=== PATIENT | male | born 1940 | race Caucasian/White ===

== ENCOUNTER 2017-06-14 15:49 | Inpatient (IN) | payer MEDICARE, OTHER ==
[~2017-06-14] VITALS: Ht 177.8 cm; Wt 104.1 kg
--- OUTSIDE RECORDS SUMMARY | ~2017-06-14 | XMS | Clinical Summary ---
Demographics + + + | Address | [address] | | | [place] [address] | + + + | Home Phone | | + + + | Preferred Language | Unknown | + + + | Marital Status | | + + + | Caodaism Affiliation | Unknown | + + + | Race | White | + + + | Ethnic Group | Not or | + + + Author + + + | Author | [facility] | + + + | Organization | [facility] | + + + | Address | Unknown | + + + | Phone | Unavailable | + + + Support + + + + + | Name | Relationship | Address | Phone | + + + + + | TALIB ROBERTO | ECON | [address] | | | | | [place] [address] | | + + + + + Care Team Providers + +------+ + | Care Retail Management Trainee Name | Role | Phone | + +------+ + | Seth Teran MD | PP | | + +------+ + Source Comments LAWRENCE is fully live on both EpicCare Ambulatory and EpicCare InPatient.[facility] Allergies + + + + + + | Active Allergy | Reactions | Severity | Noted | Comments | | | | | Date | | + + + + + + | Atenolol | Unknown | | 09/11/19 | | | | | | 17 | | + + + + + + | Nizatidine | Unknown | | 09/11/19 | | | | | | 17 | | + + + + + + | Azithromycin | Unknown | Low | 09/11/19 | Tolerates somewhat | | | | | 17 | | + + + + + + | Diphenhydramine Hcl | Unknown | | 20 | | | | | | 17 | | + + + + + + | Clarithromycin | Unknown | | 20 | | | | | | 17 | | + + + + + + | Nicardipine Hcl | Unknown | | 09/11/19 | | | | | | 17 | | + + + + + + | Clindamycin | Unknown | | 09/11/19 | | | | | | 17 | | + + + + + + | Carvedilol | Unknown | | 06/15/20 | | | | | | 17 | | + + + + + + | Duloxetine | Unknown | | 06/15/20 | | | | | | 17 | | + + + + + + | Meperidine (Pf) | Unknown | | 06/15/20 | | | | | | 17 | | + + + + + + | Finasteride | Unknown | | 06/15/20 | | | | | | 17 | | + + + + + + | Droperidol | Unknown | High | 06/15/20 | | | | | | 17 | | + + + + + + | Propranolol Hcl | Unknown | | 06/1520 | | | | | | 17 | | + + + + + + | Metoprolol Tartrate | Unknown | | 20 | | | | | | 17 | | + + + + + + | Metronidazole | Unknown | Low | 09/11/19 | Tolerates somewhat | | | | | 17 | | + + + + + + | Penicillin | Unknown | | /1520 | | | | | | 17 | | + + + + + + | Oxycodone-Acetaminop | Unknown | Low | 09/11/19 | Tolerates somewhat | | hen | | | 17 | | + + + + + + | Prednisone | Unknown | High | 09/11/19 | | | | | | 17 | | + + + + + + | Nifedipine | Unknown | | 09/11/19 | | | | | | 17 | | + + + + + + | Sulfa (Sulfonamide | Unknown | | 09/11/19 | | | Antibiotics) | | | 17 | | + + + + + + | Cimetidine | Unknown | | 20 | | | | | | 17 | | + + + + + + | Tamsulosin | Unknown | | /20 | | | | | | 17 | | + + + + + + | Tetracycline | Unknown | | 09/11/19 | | | | | | 17 | | + + + + + + | Tramadol-Acetaminoph | Unknown | | 09/11/19 | | | en | | | 17 | | + + + + + + | Hydrocodone-Acetamin | Unknown | Low | 09/11/19 | Tolerates somewhat | | ophen | | | 17 | | + + + + + + | Ranitidine Hcl | Unknown | | 09/11/19 | | | | | | 17 | | + + + + + + | Simvastatin | Unknown | | 09/11/19 | | | | | | 17 | | + + + + + + Current Medications + + +-------+---------+------+------+-------+ | Prescription | Sig. | Disp. | Refills | Star | End | Statu | | | | | | t | Date | s | | | | | | Date | | | + + +-------+---------+------+------+-------+ | | Take 1 capsule by | | | | | Activ | | aspirin-dipyridamole | mouth two times | | | | | e | | 25-200 mg oral | daily. | | | | | | | capsule, ER | | | | | | | | multiphase 12 hr | | | | | | | + + +-------+---------+------+------+-------+ | allopurinol 100 mg | Take 100 mg by mouth | | | | | Activ | | oral tablet | once daily. | | | | | e | + + +-------+---------+------+------+-------+ | zolpidem 10 mg | Take 10 mg by mouth | | | | | Activ | | oral tablet | once daily at | | | | | e | | | bedtime as needed | | | | | | | | for sleep. | | | | | | + + +-------+---------+------+------+-------+ | amLODIPine 5 mg | Take 5 mg by mouth | | | | | Activ | | oral tablet | once daily. | | | | | e | + + +-------+---------+------+------+-------+ | atorvastatin 80 mg | Take 80 mg by mouth | | | | | Activ | | oral tablet | once daily. | | | | | e | + + +-------+---------+------+------+-------+ | betamethasone | Apply 0.05 each to | | | | | Activ | | dipropionate 0.05 % | affected area two | | | | | e | | topical lotion | times daily. Apply a | | | | | | | | few drops. | | | | | | + + +-------+---------+------+------+-------+ | nitroglycerin 0.4 | Place 0.4 mg under | | | | | Activ | | mg sublingual | tongue every five | | | | | e | | tablet, sublingual | minutes as needed | | | | | | | | for chest pain. | | | | | | | | Place under tongue | | | | | | | | and allow to | | | | | | | | dissolve. | | | | | | | | Administer every 5 | | | | | | | | minutes, max of 3 | | | | | | | | doses in 15 minutes. | | | | | | + + +-------+---------+------+------+-------+ | fluticasone 50 | Instill 2 sprays | | | | | Activ | | mcg/actuation nasal | into each nostril | | | | | e | | spray,suspension | once daily. | | | | | | + + +-------+---------+------+------+-------+ | furosemide 40 mg | Take 40 mg by mouth | | | | | Activ | | oral tablet | once daily. | | | | | e | + + +-------+---------+------+------+-------+ | | Take 1 tablet by | | | | | Activ | | HYDROcodone-acetamin | mouth twice daily as | | | | | e | | ophen 10-325 mg oral | needed. | | | | | | | tablet | | | | | | | + + +-------+---------+------+------+-------+ | isosorbide | Take 30 mg by mouth | | | | | Activ | | mononitrate CR 30 mg | two times daily. | | | | | e | | oral tablet | | | | | | | | extended release 24 | | | | | | | | hr | | | | | | | + + +-------+---------+------+------+-------+ | insulin glargine | Inject under the | | | | | Activ | | 100 unit/mL | skin (SUBC) once | | | | | e | | subcutaneous | daily at bedtime. | | | | | | | solution | | | | | | | + + +-------+---------+------+------+-------+ | INV lidocaine 5% | Apply to affected | | | | | Activ | | topical cream | area once daily as | | | | | e | | | needed. Apply four | | | | | | | | times daily to the | | | | | | | | vulvar vestibule as | | | | | | | | directed by staff. | | | | | | + + +-------+---------+------+------+-------+ | loratadine 10 mg | Take 10 mg by mouth | | | | | Activ | | oral tablet | once daily. | | | | | e | + + +-------+---------+------+------+-------+ | insulin aspart | Inject 22 Units | | | | | Activ | | (NOVOLOG) 100 | under the skin | | | | | e | | unit/mL subcutaneous | (SUBC) two times | | | | | | | solution | daily. | | | | | | + + +-------+---------+------+------+-------+ Active Problems + + + | Problem | Noted Date | + + + | Renal mass | 09/07/2016 | + + + Family History + + +------+ + | Medical History | Relation | Name | Comments | + + +------+ + | Diabetes | Other | | | + + +------+ + | Hypertension | Other | | | + + +------+ + + +------+--------+ + | Relation | Name | Status | Comments | + +------+--------+ + | Other | | | | + +------+--------+ + Social History + +-------+ +--------+------+ | Tobacco Use | Types | Packs/Day | Years | Date | | | | | Used | | + +-------+ +--------+------+ | Never Smoker | | | | | + +-------+ +--------+------+ + + + | Sex Assigned at | Date Recorded | | | | + + + | Not on file | | + + + Last Filed Vital Signs + + + + | Vital Sign | Reading | Time Taken | + + + + | Blood Pressure | 128/52 | 09/07/2016 8:08 AM PDT | + + + + | Pulse | 75 | 09/07/2016 8:08 AM PDT | + + + + | Temperature | - | - | + + + + | Respiratory Rate | - | - | + + + + | Oxygen Saturation | - | - | + + + + | Inhaled Oxygen | - | - | | Concentration | | | + + + + | Weight | 109.8 kg (242 lb) | 09/07/2016 8:08 AM PDT | + + + + | Height | - | - | + + + + | Body Mass Index | - | - | + + + + Plan of Treatment + + + + + | Health Maintenance | Due Date | Last Done | Comments | + + + + + | INFLUENZA VACCINE | | | | | (FLU SHOT) | 7 | | | + + + + + Results Not on filefrom Last 3 Months"
--- OUTSIDE RECORDS SUMMARY | ~2017-06-14 | XMS | Clinical Summary ---
Demographics + + + | Address | [address] | | | [place] [address] | + + + | Home Phone | | + + + | Preferred Language | Unknown | + + + | Marital Status | | + + + | Cheondoism Affiliation | Unknown | + + + [...] ROBERTO | ECON | [address] [facility] | | | | | [place] [address] | | + + + + + Care Team Providers + +------+ + | Care Dining Room Server Name | Role | Phone | + +------+ + | Seth Teran MD | PP | | + +------+ + Source Comments LAWRENCE is fully live on both EpicCare Ambulatory and EpicCare InPatient.[facility] Allergies + + + + + + [...]
--- OUTSIDE RECORDS SUMMARY | ~2017-06-14 | XMS | Clinical Summary ---
Demographics + + + | Address | [address] | | | [place] [address] | + + + | Home Phone | | + + + | Preferred Language | Unknown | + + + | Marital Status | | + + + | Yazidism Affiliation | Unknown | + + + [...] ECON | [address] | | | | | [place] [address] | | + + + + + Care Team Providers + +------+ + | Care Printing Machinist Name | Role | Phone | + +------+ + | Seth Teran MD | PP | | + +------+ + Source Comments LAWRENCE is fully live on both EpicCare Ambulatory and EpicCare InPatient.[facility] Allergies + + + + + + [...]
[~2017-06-14 15:49] MED LIST: AGGRENOX 25 MG-21 EA PO; AMLODIPINE BESYL5 MG PO; ASPIRIN EC81 MG PO; CARVEDILOL25 MG PO; CLEOCIN HCL300 MG PO; COLACE100 MG PO; DOCUSATE SODIU100 MG PO; FLAGYL500 MG PO; FLUTICASONE PRO16 GM NS; ISOSORBIDE MONO30 MG PO; LANTUS100 UNITS/ SUB-Q; LASIX20 MG PO; LIDOCAINE1 EACH TOP; LIPITOR80 MG GT; LIPITOR80 MG PO; LISINOPRIL40 MG PO; LORATADINE10 MG PO; MEDI-PATCH WIT1 EACH TOP; METOLAZONE2.5 MG PO; NAPROXEN500 MG PO; NITRO-TIME2.5 MG PO; NITROGLYCERIN0.4 MG SL; NORCO 5-325 TA1 EACH PO; NORVASC10 MG PO; NOVOLOG FL100 UNIT/1 SUB-Q; OCUVITE LUTEIN1 EAC1 PO; PERCOCET 5-3251 EACH PO; POTASSIUM CHLO20 ME1 PO; PROTONIX40 MG PO; TOPROL XL25 MG PO; TRIAMCINOLONE A15 GM TOP; TYLENOL325 MG PO
--- NOTE | 2017-06-14 23:02 | NUR ---
STANDING AT BEDSIDE. HAD VOIDED. PT STATES THAT HE FEELS LIKE SCROTUM IS SWELLING. INFORMED PT THAT THIS HAPPENS WHEN A PERSON HAS TO BE UPRIGHT . PT THEN STANDING AGAIN AND SAYS THAT HE FEELS LIKE HE CAN'T BREATH WELL EVEN SITTING. ASKED IF HE WANTED TO WEAR CPAP. RT CALLED. PT CONT TO SIT AT EDGE OF BED.
--- NOTE | 2017-06-14 23:15 | NUR ---
DR VARELA CALLED AND GIVEN UPDATE. WILL HAVE PT TRY TO SLEEP IN RECLINER. CHERYL MARTINEZ GIVEN UPDATE.
--- NOTE | 2017-06-14 23:53 | NUR ---
PT ARRIVED TO ROOM 129 AT 2034. STOOD AT BEDSIDE FOR STANDING SCALE. SLIGHTLY UNSTEADY ON FEET. PT WITH DISCOLORATION IN SHINS, BLISTERING ON R CHENG. ALSO HAS NICKEL SIZED BLISTER MID- R CHENG. PT REPORTS SWELLING NEW THIS WEEK. DENIES HAVING LE EDEMA PRIOR. SWELLING 4+, DOPPLER USED TO FIND PULSES IN FEET. ADDITIONALLY ABD FEELS TIGHT, PT REPORTS FEELING MORE BLOATING AND GAS RECENTLY. PT UNABLE TO LAY DOWN AFTER DINNER. SITTING AND BELCHING AT BEDSIDE OCCATIONALLY. AT APPROXIMATELY [address] MORE SOB. DR VARELA NOTIFIED. WORK OF BREATHING NO SIGNIFICANTLY INCREASED. RR 20'S. SPO2 95-97% ON 2L NC. TRIED PT HOME CPAP, PT UNABLE TO TOLERATE, TOOK OFF. PLACED CARRASQUILLO CATHETER AT 0 PT FATIGUED AND SOB WITH EXERTION. PT UNABLE TO LIE SUPINE FOR PROCEDURE. PLACED 16FR IN CHAIR, USED CHLOROHEXADINE FOR PREP. PT FEELING MORE COMFORTABLE IN CHAIR. UNABLE TO ELEVATE LE, HOWEVER.
--- NOTE | 2017-06-15 02:29 | NUR ---
PT GIVEN 10MG AMBIEN TO HELP SLEEP AND 500MG TYLENOL AT 0130. PT UP AND DOWN IN CHAIR TO STRETCH BACK. REPORTS FEELING LESS SOB IN THE CHAIR. CURRENTLY SLEEPING. EARLIER HAD ATTEMPTED TO ELEVATE PT LEGS IN CHAIR WITH PILLOWS. PT TOLERATED FOR 30MIN.
--- NOTE | 2017-06-15 03:13 | NUR ---
PT ASLEEP IN CHAIR. LE ELEVATED.
--- NOTE | 2017-06-15 04:34 | NUR ---
PT REQUESTED TO STAND UP, UNSTEADY ON FEET. REMAINS DROWSY. BACK TO CHAIR, FEET ELEVATED. PT FEELS SCROTUM IS LESS SWOLLEN. LESS SOB.
--- NOTE | 2017-06-15 05:04 | NUR ---
REPOSITIONED PT IN BED WITH PILLOWS. PLACED BIPAP BACK ON PT. IPAP10, EPAP5, RATE 8, 02- 25%. REMINDED PT THAT IS NPO. CALL IN REACH BED ALARM ON. REMAINS FORGETFUL AND DROWSY.
--- NOTE | 2017-06-15 07:30 | NUR ---
BEDSIDE REPORT RECIEVED.
--- NOTE | 2017-06-15 07:40 | NUR ---
SITTING UP IN CHAIR. FAMILY MEMBERS ARE AT BEDSIDE. PATIENT AND FAMILY ARE UNDERSTANDING OF PLAN OF CARE. LASIX GTT 5 MG/HR. CARRASQUILLO CATH IS PATENT WITH CLEAR YELLOW URINE NOTED.
--- NOTE | 2017-06-15 08:30 | NUR ---
SITTING AT BEDSIDE TO EAT BREAKFAST. ROUTINE MEDICATIONS GIVEN. IS AWARE OF FLUID RESTRICTION. PATIENT DENIES SHORTNESS OF BREATH.
--- NOTE | 2017-06-15 10:43 | NUR ---
IS SLEEPING IN BED WITH LEGS ELEVATED AT HIS TIME. NO DISTRESS NOTED,
--- NOTE | 2017-06-15 13:15 | NUR ---
AMBULATED TO BR. IS STABLE ON FEET.
--- NOTE | 2017-06-15 13:22 | EKG ---
[facility] [address] [place] [address] Signed Sinus rhythm with frequent premature ventricular complexes Right bundle branch block Lateral infarct , age undetermined Inferior infarct , age undetermined Abnormal ECG No previous ECGs available Confirmed by BLAKE VARELA MD ([id number]) on 06/15/2017 1:21:52 PM Electronically Signed By: BLAKE VARELA MD 06/15/17 1322 PATIENT NAME: JESUSPATHALEY LY Electrocardiogram DATE OF : 42 PHYSICIAN: BLAKE VARELA MD REPORT #: [id number] REPORT IS CONFIDENTIAL AND NOT TO BE RELEASED WITHOUT AUTHORIZATION
--- NOTE | 2017-06-15 15:53 | NUR ---
Heart Failure Education Diagnosis acute on chronic HFrEF Date of echocardiogram 2014 Jose Inhibitor or ARB:Yes Beta Devante ordered:Yes Admit Wt.: 242 lb Admit BNP: 903 Social support system: Lives with spouse, Grandson Norman present at bedside, strong community ties Weight monitoring: Has home scales and reports weighing QD Diet: reports that she doesn't cook with salt. Will follow up with more in depth diet discussion. Physical activity: Limited. Has intolerance to too warm or cold. Has park that has nice level surface near his home. Medication routine: Spouse fills weekly medication box every Wednesday. Patient appears tired, will return prior to DC for further discussions about self management barriers and goals. Teaching materials given today: Traci Living with Heart Failure book, Low Sodium Shopping list, Daily weight and symptom monitoring log.
--- NOTE | 2017-06-15 17:00 | NUR ---
ASSESSMENT DONE. NO CHANGES. FAMILY REMAIN IN ROOM. LEGS ELEVATED ON PILLOWS.
[2017-06-15] MEDS ORDERED: TORSEMIDE20 MG PO (17:45)
[2017-06-15] MEDS ORDERED: ESZOPICLONE3 MG PO (17:47)
[2017-06-15] MEDS ORDERED: ALLOPURINOL100 MG PO (17:49)
[2017-06-15] MEDS ORDERED: AMLODIPINE BESYL5 MG PO (17:50)
[2017-06-15] MEDS ORDERED: VITAMIN D-32000 UNI1 PO (17:55)
--- NOTE | 2017-06-15 18:45 | NUR ---
ATTEMPTED TWICE TO START IV SITE, UNSUCCESSFUL. PICC LINE CONSULT ORDERED. PATIENT IS WITHOUT C/O.
--- NOTE | 2017-06-15 19:30 | NUR ---
PT SHIFT REPORT RECEIVED FROM DAY SHIFT RN. ALL QUESTIONS ANSWERED. PT AND IN ROOM. PT IS SITTING IN CHAIR AT THIS TIME. WILL CONTINUE TO CLOSELY MONITOR.
--- NOTE | 2017-06-15 19:31 | NUR ---
REPORT TO NEXT SHIFT. PATIENT IS W/O C/O. IN ROOM.
--- NOTE | 2017-06-15 20:30 | NUR ---
PT ASSESSMENT COMPLETED. PT BREATH SOUNDS CLEAR. BOWEL TONES ARE DISTANT AND HYPOACTIVE. PT REPORTS BM X2 TODAY SO REFUSED SENNA MEDICATION THIS PM. PT ABDOMEN IS DISTENDED PER PT. BLE ARE VERY SWOLLEN WITH 3+ PITTING EDEMA NOTED. PT STES HE CAN MOVE HIS TOES TODYA NAD LAST NIGHT WAS NOT ABLE TO MOVE THEM D/T THE SWELLING. PT HAS CARRASQUILLO IN PLACE WITH CLEAR YELLOW URINE PRESENT. PT WILL CALL WHEN HE IS READY FOR BED AND WILL GIVE SLEEPING AID PER REQUEST AT THAT TIME AND ASSIST WITH GETTING TO BED. WILL PLACE CPAP ON AT THAT TIME. PT STATES "I FEEL MUCH BETTER TONIGHT THAN THE PREVIOUS NIGHT".PT AT THE BEDSIDE. PT IS VERY TALKATIVE AND TELLING STORIES ABOUT HIS PREVIOUS CAREER AND ADVENTURES IN LIFE. WILL CONTINUE TO CLOSELY MONITOR.
--- NOTE | 2017-06-15 22:20 | NUR ---
PT CALLED TO GET IN BED. PT TOELRATED WELL. PT IS STAND-BY WITH A WALKER. LEGS ELEVATED ON PILLOWS TO HELP WITH EDEMA. GAVE PT TYLENOL FOR GEN. DISCOMFORT AND PRN SLEEP AID PER REQUEST. PT DENIES WEARING HIS CPAP AT THIS TIME. PT WOULD PREFER TO WEAR OXYGEN TO SLEEP INSTEAD LIKE HE DID THE PREVIOUS NIGHT. PLACED ON 3L NC. GAVE WARM BLANKET. CARRASQUILLO EMPTIED. EDUCATED EVENT SPECIALIST LIGHT. WILL CONTINUE TO CLOSELY MONITOR.
--- NOTE | 2017-06-15 23:15 | NUR ---
CALLED MD TO UPDATE THAT PT URINE IS LESS THAN 100ML/HR. PER DAYSHIFT REPORT TO NOTIFY MD IF LESS THAN 100ML/HR. MD STATED LETS CONTINUE TO MONITOR IT OVER NIGHT AND TO NOTIFY MD IF PT BECOMES ANURIC. NO OTHER ORDERS AT THIS TIME.
--- NOTE | 2017-06-15 23:40 | NUR ---
OTHER STAFF IN ROOM WITH PT. ENTERED ROOM. PT WOKE DROWSY AND FORGETFUL. CHECKED PT BLOOD SUGAR 139. PER PT PT WAKES LIKE THIS ABOUT EVERY OTHER NIGHT SOMETIMES MULITPLE TIMES A NIGHT AND SHE REDIRECTS HIM TO BACK TO BED. SET BED ALARM FOR PT SAFETY. PT CPAP ON AT THIS TIME. PT NOW SLEEPING IN BED. PT OVER TO TALK WITH STAFF. PT STATES THAT AT HOME HER WILL TALK TO THEIR SON IN THE MIDDLE OF THE NIGHT. SHE STATES HER HAS ONCE BEFORE AND WAS REVIVED AND EVER SINCE THAT TIME HE HAS HAD VISIONS AND TALKED WITH THEIR SON EVER SINCE HE . PER PT THE PT HAS KIDNEY CANCER AND 5 DOCTORS HAVE TOLD HER THEIR IS NOTHING THEY CAN DO THIS TIME AROUND. PT IS VERY OPEN TO DISCUSSION REGURDING HER HUSBANDS MEDICAL ISSUES. PT WIFES GRANDSON IS VERY HELPFUL AND LIVES NEXT DOOR TO THEM. ENCOURAGED PT AND HIS TO GET SOME REST. WILL CONTINUE TO CLOSELY MONITOR.
--- NOTE | 2017-06-16 02:00 | NUR ---
PT RESTING IN BED AT THIS TIME WITH CPAP IN PLACE. PT NEIDA CONTINUES TO DRAIN YELLOW URINE. PT SLEEPING ON SOFA AT THIS TIME. PT BED ALARM ON FOR HIS SAFETY. CALL LIGHT IN REACH. WILL CONTINUE TO CLOSELY MONITOR.
--- NOTE | 2017-06-16 04:00 | NUR ---
PT AWAKE AND TELEMETRY IS OFF. ENTERED ROOM. PT NEEDS TO GET UP AND HAVE A BM. PT AMBULATED INTO THE BATHROOM WITH WALKER. CARRASQUILLO CATHETER EMPTIED COMPLETELY. ASSESSMENT COMPLETED. PT WANTS TO GO BACK TO BED AT THIS TIME. ASSISTED PT BACK IN BED. PLACED CPAP MACHINE BACK ON PT FOR REST. CALL LIGHT IN REACH. PT DENIES ANY OTHER NEEDS AT THIS TIME. WILL CONTINUE TO MONITOR. BED ALARM ON FOR A SAFETY. PT IS ALERT AND ORIENTED AT THIS TIME.
--- NOTE | 2017-06-16 05:30 | NUR ---
PT WOKE AND READY TO GET UP TO THE CHAIR. ASSISTED PT UP TO CHAIR. PT AMBULATED WELL WITH WALKER TO THE CHAIR. PT DENIES ELEVATING LEGS AT THIS TIME. PT REMAINS ALERT AND ORIENTED AND CALLING APPROPRIATELY. PT IS UP AT HIS SIDE. SHE IS VERY HELFUL IN HIS CARE AND WISHES TO HELP WHERE SHE CAN. PT COMPLETED AQUAPELLA AND INCENTIVE SPIROMETER THIS MORNING APPROPRIATELY. WILL CONTINUE TO ENCOURAGE USE THROUGHOUT THE DAY. BREAKFAST ORDERED. PT HAS CALL LIGHT IN HAND. LASIX GTT REMAINS AT 5ML/HR PER ORDER WITH NO ISSUES. WILL CONTINUE TO CLOSELY MONITOR.
--- NOTE | 2017-06-16 08:53 | NUR ---
PT ATE APPROX 95% OF LOW SODIUM BREAKFAST. RETURNED TO BED WITH ONE PERSON ASSIST. ASSESSMENT COMPLETED, PT STATES HIS RIGHT SHOULDER AND LOW BACK PAIN IS "3/10". LIDOCANE PATCHES IN PLACE. IN ROOM.
--- NOTE | 2017-06-16 09:30 | NUR ---
Heart Failure RN visit #2- Patient and shared past cardiac rehab experiences. Are engaged in self care routines. Reinforced importance of QD weight and when to report symptoms-and to whom. Given HF Zones Magnet to patient's spouse. Reports dry weight is 234lb. Today's documented wt 236 lb. Patient knows to avoid NSAIDs. Denies problems remembering meds. Some meds taken later than usual recently due to fatigue and getting out of bed later than usual. Given 7 day, 4times a day, pill box to utilize. Importance of follow up with PCP or chicken boner within 7 days of DC disussed. Has June 30 rig builder helper appointment scheduled. Agrees to be put on waitlist for cardiac rehab program as "a refresher". Viewed Jameson Velasquez What is Heart Failure video.
--- NOTE | 2017-06-16 10:29 | NUR ---
PT ASSISTED WITH SPONGE BATH. ORAL CARE COMPLETED. PT STOOD AT BEDSIDE WITH WALKER, FAMILY IN ROOM.
--- NOTE | 2017-06-16 16:48 | NUR ---
PT RESTED THIS AFTERNOON WITH HOB ELEVATED. DR. VARELA IN TO ASSESS PT. PT STATES FEELING BETTER. WILL CONTINUE ON LASIX GTT AT 5MLS/HR. CARRASQUILLO DRAINING CLEAR YELLOW URINE. I/O'S COMPLETED AT 1400. 1600 ASSESSMENT COMPLETED, PT STATES SHOULDER AND LOW BACK PAIN "2/10". LIDOCAINE PATCHES IN PLACE.
--- NOTE | 2017-06-16 18:06 | NUR ---
PT ATE 100% OF DINNER, PT UP TO EMBER CHAIR WITH MINIMAL ASSIST RESTING IN A RECLINED POSITION WITH LEGS ELEVATED.
--- NOTE | 2017-06-16 20:00 | NUR ---
RECEIVED REPORT AT 1900, FOUND PT UP IN CHAIR WITH AT BEDSIDE WATCHING TV. PT DENIED ANY NEEDS AT THAT TIME. LLL HAD FINE CRACKLES, ALL OTHER LOBES ARE CLEAR. ABD SOUNDS ARE PRESENT. SENNA WAS HELD PER PT DUE TO VERY LOOSE STOOL. BILATERAL LEG EDEMA IS +3. LOWER LEGS ARE RED BUT LOOK BETTER STATED BY PT. PT IS AAO X4. LASIX DRIP IS GOING AT 5ML/HR. NO NEW CONCERNS AT THIS TIME.
--- NOTE | 2017-06-16 22:00 | NUR ---
PT IS STILL SITTING IN CHAIR WATCHING TV. PT AT THIS TIME DOES NOT WANT HIS LEGS ELEVATED. NO NEW CONCERNS AT THIS TIME.
--- NOTE | 2017-06-16 23:00 | NUR ---
PT IS IN BED NOW. AMBIEN 10MG GIVEN, BED ALARM IS ON.
--- NOTE | 2017-06-17 00:05 | NUR ---
PT IS SLEEPING AT THIS TIME. SINCE HIS URINE OUTPUT HAS DECREASED TO 75ML/HR FOR THE PAST TWO HOURS, I WILL SWITCH IV SITES AND SEE IF THIS WILL HELP TO GET THE LASIX INTO THE BLOODSTREAM BETTER.
--- NOTE | 2017-06-17 02:00 | NUR ---
PT WAS WOKEN UP FOR THE ASSESSMENT. PT WAS DROWSY DUE TO THE AMBIEN I SUPOSE. ALL LOBES ARE CLEAR, URINE OUTPUT HAS INCREASED TO 100ML/HR FOR THE LAST TWO HOURS. BILATERAL LEG EDEMA IS UNCHANGED. V/S ARE WDL. NO NEW CONCERNS AT THIS TIME.
--- NOTE | 2017-06-17 02:35 | NUR ---
PT WOKE UP WITH A RIGHT LOWER LEG CRAMP. STRETCHING OF THE RIGHT LOWER EXTREMITY WAS DONE AND A WARM BLANKED WAS APPLIED. PT IS BACK TO SLEEP.
--- NOTE | 2017-06-17 04:02 | NUR ---
PT IS SLEEPING AT THIS TIME. NO NEW CONCERNS SO FAR.
--- NOTE | 2017-06-17 04:30 | NUR ---
PT IS AWAKE AT THIS TIME AND SITTING UP AT SIDE OF BED. STANDING WEIGHT IS 234.1LB. V/S ARE WDL, ALL LOBES ARE CLEAR AT THIS TIME. BILATERAL LOWER LEGE EDEMA HAS NOT CHANGED SINCE START OF SHIFT. PT IS ON RA AT THIS TIME. WILL CONTINUE TO MONITOR OUTPUT, V/S AND LUNG LOBES FOR CHANGES.
--- NOTE | 2017-06-17 06:34 | NUR ---
PT OVERALL HAD AN UNEVENTFUL NIGHT. V/S WERE WDL OVERALL. URINE OUTPUT HAS >100ML/HR ALL SHIFT WITH THE EXCEPTION OF ONE HOUR (SEE I&O). AT START OF SHIFT LLL HAD FINE CRACKLES PRESENT BUT ALL OTHER LOBES WERE CLEAR. PT HAD C-PAP ON ALL NIGHT WHILE SLEEPING. ALL LOBES WERE CLEAR WITH LAST ASSESSMENT THIS MORNING. LASIX DRIP IS RUNNING AT 5ML/HR. BG AT 2100 WAS 173, PT RECEIVED 1 UNIT OF NOVOLOG INSULIN. STANDING WEIGHT THIS MORNING WAS 234.1 LB. BILATERAL LEG EDEMA IS +3. HOWEVER, PT AND DAY STAFF NOTED THAT BOTH LEGS ARE LOOKING BETTER OVERALL. MORNING LABS HAVE NOT RESULTED OF NOW. NO NEW COCNERNS AT THIS TIME.
--- NOTE | 2017-06-17 07:56 | NUR ---
PT AWAKE AND ALERT SITTING UP IN BED. PT CALM, DENIES PAIN, NAUSEA, AND SOB AT THIS TIME. VITALS WNL. PT BLOOD GLUCOSE WNL, NO INSULIN GIVEN. PT GIVEN BREAKFAST TRAY, GIVEN IT PROGRAMMER ANALYST TRAY.
--- NOTE | 2017-06-17 08:45 | NUR ---
PT IV SITES INTACT, NO REDNESS OR SWELLING NOTED, PT DENIES PAIN AT EITHER SITE, FLUSH AND FLUIDS INFUSE EASILY. PT AWAKE AND ALERT X4, COOPERATIVE AND POLITE. PT ABLE TO ABMULATED TO SINK WITH WALKER, BRUSH TEETH, WASH FACE. THEN AMBULATED TO CHAIR. VITALS WNL AT THIS TIME, PT ON ROOM AIR. PT C/O BASELINE CHRONIC PAIN IN SHOULDER AND LOW BACK, RATES IT AT 2/10, STATES THIS IS TOLLERABLE. PT DENIES NAUSEA, ABLE TO EAT 100% OF BREAKFAST, SWALLOWS PILLS EASILY. PT COOPERATIVE WITH FLUID RESTRICTION. AND GRANDSON AT THE BEDSIDE.
[2017-06-17] MEDS ORDERED: CELEXA10 MG PO (08:50)
[2017-06-17] MEDS ORDERED: FLONASE ALLERG9.9 ML NAS (08:52)
[2017-06-17] MEDS ORDERED: HYDROCHLOROTHIA25 MG PO (08:54)
[2017-06-17] MEDS ORDERED: NOVOLOG FL100 UNIT/1 SUB-Q (08:59)
--- NOTE | 2017-06-17 09:00 | NUR ---
LINENS ON BED CHANGED.
[2017-06-17] MEDS ORDERED: LOSARTAN POTAS100 MG PO (09:04)
--- NOTE | 2017-06-17 09:43 | NUR ---
Certified Heart Failure RN Note Mr Roberto and family do not have any concerns for this service at this time. Mrs. Roberto states the cardiology appointment for tomorrow has been rescheduled in June. Cardiology office did place patient on wait list to be seen sooner. Screenings completed today: PHQ-9 score 3. Mini-Cog score 4 (a cut point of <3 has been validated for dementia screening).
--- NOTE | 2017-06-17 10:35 | NUR ---
PT AMBULATED DOWN THE WOODY TO THE SHOWER WITH STANDBY ASSIST AND WALKER, PT SHAUNA WELL. PT SAT IN SHOWER CHAIR, RN ASSISTED WITH PT SHOWER, PT ABLE TO DO SOME CARES FOR HIMSELF. CLEAN GOWN AND SOCKS IN PLACE. PT AMBULATED BACK TO HIS ROOM WITH STANDBY ASSIST AND WALKER. PT SHAUNA WELL, DENIES PAIN, NAUSEA, AND SOB AT THIS TIME.
[2017-06-17] MEDS ORDERED: LASIX40 MG PO (10:42)
[2017-06-17] MEDS ORDERED: AMBIEN5 MG PO (10:42)
[2017-06-17] MEDS ORDERED: FUROSEMIDE40 MG PO (10:43)
--- NOTE | 2017-06-17 10:46 | NUR ---
MED REC COMPLETE
--- NOTE | 2017-06-17 11:10 | NUR ---
LIDOCANE PATCHES APPLIED TO RIGHT SHOULDER AND LOW BACK NOW THAT PT IS BACK IN HIS ROOM FROM SHOWER. PT DENEIS NAUSEA, SOB, AND PAIN AT THIS TIME. PT SITTING UP IN CHAIR, CALL LIGHT WITHIN REACH. LUNCH ORDERED FOR PT.
--- NOTE | 2017-06-17 12:12 | NUR ---
ECHO COMPLETED, ASSISTED PT UP TO CHAIR TO EAT LUNCH. PT ALERT AND ORIENTED X4, COOPERATIVE.
--- NOTE | 2017-06-17 13:15 | NUR ---
PASTORAL CARE IN PT ROOM VISITING WITH PT AND SPOUSE.
--- NOTE | 2017-06-17 14:23 | NUR ---
PT SITTING ON SIDE OF BED-ALERT, ORIENTED AND SUPPORTED BY HIS TREY. PT MENTIONED HOW HE IS FEELING BETTER, BUT ADMITTED THAT HIS TIME IS LIMITED. ONLY ONE KIDNEY-WORKING AT 14%, HEART NOT MUCH BETTER. PT SHARED HOW THEY JUST LOST THEIR ONLY SON LAST YEAR WITH SAME ISSUES. VERY OPEN HONEST CONVERSATION. PT REQUESTED PRAYER, WILL FOLLOW NEEDED.
--- NOTE | 2017-06-17 14:26 | NUR ---
PT MOVED BACK TO CHAIR WITH FEET ELEVATED FROM SITTING ON THE BED WITH FEET DOWN. OCCUPATIONAL THERAPY IN ROOM WORKING WITH PT AT THIS TIME.
--- NOTE | 2017-06-17 17:22 | NUR ---
PT SITTING UP IN CHAIR WITH AT BEDSIDE. PT DENIES NAUSEA, SOB, AND STATES PAIN IS TOLLERABLE. PT REPOSTIONED IN CHAIR AND GIVEN HOT BLANKETS FOR COMFORT. DINNER ORDER TAKEN. PT IV SITES INTACT, NO REDNESS OF SWELLING NOTED, FLUIDS INFUSING EASILY.
--- NOTE | 2017-06-17 20:17 | NUR ---
REPORT REC'D FROM DAY SHIFT RN. PATIENT RESTING IN ROOM UPON INITIAL ASSESSMENT AND FOUND TO BE STANDING IN FRONT OF HIS CHAIR, WATCHING TV, WITH HIS AT BEDSIDE. PT APPEARS IN NO ACUTE DISTRESS UPON INITIAL ASSESSMENT. PT IS ALERT, ORIENTED, AND VERY PLEASANT. PT SITS IN CHAIR FOR ASSESSMENT. LUNGS ARE CLEAR TO AUSCULTATION AND PT DENIES SHORTNESS OF BREATH AT THIS TIME. PT IS ON ROOM AIR. PT STATES THAT EARLIER TODAY HE HAD PAIN BETWEEN SHOULDER BLADES THAT SCARED HIM, BUT PAIN WAS RELIEVED WITH PO TYLENOL. PT REMAINS ON LASIX GTT AT 5 MG/HR INTO LEFT AC IV SITE. LOWER LEGS REMAIN EDEMATOUS, WITH 3+ EDEMA PRESENT. SOME SWELLING ALSO NOTED IN UPPER LEGS. PT STATES HE WALKED APPROX 250 FEET TODAY WITH THE PHYS. THERAPIST. OVERALL, PT STATES HE IS FEELING BETTER. MEDS TO BE GIVEN SOON. CALL LIGHT WITHIN REACH.
--- NOTE | 2017-06-17 21:38 | NUR ---
DR. WAKEFIELD NOTIFIED OF 8 BEAT RUN OF [facility] AROUND 2029. RNs IN ROOM WITH PATIEN DURING THIS AND PT WAS ASYMPTOMATIC. NO FURTHER ORDERS REC'D AT THIS TIME.
--- NOTE | 2017-06-17 23:44 | NUR ---
PATIENT HELPED BACK TO BED AT THIS TIME. PT HAS BEEN STRUGGLING TO FALL ASLEEP AND HAS BEEN STANDING AT BEDSIDE TO HELP ALLEVIATE HIS BACK PAIN. PT NOW BACK IN BED WITH CPAP ON WITH 2 L 02. PT REMAINS IN A SINUS RHYTHM WITH A BBB AND FREQ MULTIFOCAL PVCs. CARRASQUILLO REMAINS INTACT DRAINING CLEAR YELLOW URINE. CALL LIGHT WITHIN REACH. PT'S REMAINS IN ROOM ON COUCH SLEEPING AND IS ATTENTIVE TO PATIENT.
--- NOTE | 2017-06-18 03:00 | NUR ---
PATIENT UP STANDING AT SIDE OF BED DUE TO HIS BACK HURTING. PT STATES HE HAS BEEN HAVING TROUBLE SLEEPING THROUGH THE NIGHT. CARRASQUILLO DRAINING CLEAR YELLOW URINE. VITALS BEING TAKEN Q1HR AND STABLE. LASIX GTT REMAINS AT 5 MG/HR. CONTINUE TO MONITOR.
--- NOTE | 2017-06-18 06:19 | NUR ---
PATIENT AWAKE AT THIS TIME AND SITTING UP AT EDGE OF BED. PT REQUEST DECAF COFFEE AND A NEWSPAPER. CARRASQUILLO DRAINED FOR 950 ML OF CLEAR YELLOW URINE. LASIX GTT AT 5 MG/HR. PT STATES HE HAD A POOR NIGHT SLEEPING. PT WORE CPAP WITH 2 L BLED IN DURING SLEEP. CONTINUE TO MONITOR. PT'S WEIGHT THIS AM 231.6 LB.
--- NOTE | 2017-06-18 06:28 | NUR ---
PATIENT HAD A POOR NIGHT OF SLEEP OVERALL. LASIX GTT REMAINS INFUSING AT 5 MG/HR. PT'S WEIGHT THIS AM 231.6 LB. PT STRUGGLED WITH PAIN IN HIS LOW BACK THROUGH THE NIGHT. PT HAD 8 BEAT RUN OF [facility] AROUND 2029 - MD NOTIFIED. NEIDA OUTPUT 950 AT 0600. LIDOCAINE ORDER CHANGED TO HS PT WEARS THEM AT NIGHT AT HOME. TREY IN ROOM AND ATTENTIVE TO PATIENT. SR WITH FREQ PVCs AND BBB, HR 60-80s.
--- NOTE | 2017-06-18 08:11 | NUR ---
PT AWAKE AND ALERT X4. PT C/O / RT SHOULDER PAIN, 500 MG PO TYLENOL GIVEN AT THIS TIME. PT SITTING UP IN CHIAR, BREAKFAST ORDERED FOR PT. PT DENIES NAUSEA AND SOB. IV SITES INTACT, NO REDNESS OR SWELLING NOTE, PT DENIES PAIN AT EITHER IV SITE. DISCUSSED PLAN OF THE DAY WITH PT, PLAN FOR SHOWER AND SHAVE.
--- NOTE | 2017-06-18 09:12 | NUR ---
PT FINISHED WITH BREAKFAST AND BACK IN BED RESTING AT THIS TIME.
--- NOTE | 2017-06-18 10:35 | NUR ---
PT AMBULATED 2 LAPS AROUND UNIT WITH PHYSICAL THERAPY.
--- NOTE | 2017-06-18 12:15 | NUR ---
ORDERED LUNCH FOR PT AND SPOUSE. PT SITTING UP IN CHAIR, DENIES PAIN, NAUSEA, AND SOB AT THIS TIME. LEGS ELEVATED.
--- NOTE | 2017-06-18 13:23 | NUR ---
PT STILL STRUGGLING WITH FLUID BULLD UP. SITTING IN CHAIR WITH LEGS UP. TREY AND G.SON CAMILLA PRESENT. GOOD VISIT, PT MENTIONED HE DID NOT SLEEP WELL. PRAYED WITH ALL, WILL CONTINUE TO FOLLOW
--- NOTE | 2017-06-18 13:30 | NUR ---
PT AMBULATED TO SHOWER IN ROOM 118. PT BRUSHED OWN TEETH, SAT ON TOILET AND HAD BM. THEN INTO SHOWER CHAIR FOR FULL SHOWER WITH ASSIST FROM RN. SHAMPOOED HAIR, SKIN CARE, MARK CARE. PT INTO CLEAN GOWN AND SOCKS AFTER SHOWER. PT AMBULATED BACK TO ROOM. PT THEN IN BED WITH FEET ELEVATED. IV SITES INTACT, NO REDNESS OR SWELLING NOTED, PT DENIES PAIN AT EITHER SITE, BOTH FLUSH EASILY. AND FRIENDS AT BEDSIDE.
--- NOTE | 2017-06-18 17:35 | NUR ---
PT C/O SUDDENLY NOT FEELING WELL. REPORTS NAUSEA AND FEELING LIKE IF HE LAYS DOWN HE IS BEING CHOKED. UNTIED PT GOWN STRINGS ON BACK OF NECK, PLACED PT ON 2L O2 VIA NC. GAVE 4 MG IV ZOFRAN AND SIMETHICONE PO GIVEN. PT ASSISTED TO LAY DOWN IN BED. VITALS WNL AT THIS TIME, HEART RATE REMAINS THE SAME IT HAS BEEN ALL DAY.
--- NOTE | 2017-06-18 18:00 | NUR ---
CALLED TO UPDATE ON PT STATUS: FEELINGS OF NAUSEA, GAS, IN GENERAL NOT FEELING WELL. REPORTED TO DOCTOR THAT 4 MG IV ZOFRAN, AND PO SIMETHICONE GIVEN, AND PLACED PT ON 2L O2. NO NEW ORDERS GIVEN EXCEPT TO CONTINUE TO MONITOR. PT HEART RHYTHM REMAINS THE SAME.
--- NOTE | 2017-06-18 18:11 | NUR ---
PT RESTING QUIETLY AT THIS TIME, STATES "I FEEL A BIT BETTER NOW, THE NAUSEA IS GOING AWAY".
--- NOTE | 2017-06-18 20:00 | NUR ---
PATIENT IN BED REQUESTING TO SIT UP. PT ASSISTED TO EDGE OF BED. C/O INTERMITTEN BILATERAL GROIN PAIN, RATES PAIN 2. NC IN PLACE RUNNING 2L O2. PT DID NOT EAT DINNER, REQUESTED CRACKERS. LAC IV PATENT AND RUNNING LASIX AT 5MG/HR. PATIENT'S AT BEDSIDE.
--- NOTE | 2017-06-18 20:35 | NUR ---
PATIENT REQUESTING TO STAND AT BEDSIDE. EDEMA ASSESSED. EDEMA IN BILATERAL UPPER EXTREMITES IMPROVING. BILATERAL LOWER EXTREMITIES CONTINUE TO BE EDEMATOUS, SLIGHT WRINKLING NOTED. ABDOMEN APPEARS TO BE MORE DISTENDED PER ASSESSMENT AND PT REPORT.
--- NOTE | 2017-06-18 21:20 | NUR ---
PATIENT REQUESTING TO LAY IN BED. ASSISTED BACK TO BED AND CALL LIGHT WITHIN REACH.
--- NOTE | 2017-06-18 21:40 | NUR ---
NC REMOVED AT THIS TIME. C/O OF SOB AND "FEELING LIKE I'M BEING CHOKED." HOB ELEVATED. SPO2 DECREASED BETWEEN 85-90%. C/O OF SOB CONTINUED. NC WITH 2L O2 PLACED AT THIS TIME. SPO2 INCREASED TO 94-99%. PT ASSISSTED TO EDGE OF BED FOR COMFORT. NO C/O SOB AND SPO2 WNL AT THIS TIME.
--- NOTE | 2017-06-18 22:30 | NUR ---
PATIENT REASSESSED FOR SOB. DENIES AT THIS TIME. CONTINUED C/O OF INTERMITTEN BILATERAL GROIN PAIN. P/C TO PROVIDER AT THIS TIME ALERTING OF SOB, GROIN PAIN, AND INCREASED MONITOR ALARMS FOR ABNORMAL RHYTHMS. NO NEW ORDERS AT THIS TIME. REINFORCED DISEASE PROCESS AND POTENTIAL S/SX. EDUCATED ON ELEVATING LOWER EXTREMITIES, INCREASING HOB, AND PAIN RELIEF MEDICATION PRN.
--- NOTE | 2017-06-18 23:15 | NUR ---
PATIENT REQUESTING AMBIEN AND TYLENOL, GIVEN. PT REQUESTING TO LAY DOWN FOR THE EVENING. C/O SOB WHILE LAYING DOWN, HOB ELEVATED, NO IMPROVEMENT. PT REQUESTING TO BE PLACED IN CHAIR. CARRASQUILLO CARE PROVIDED. PT ASSISTED TO CHAIR. PT REQUESTING NC WITH 2L INSTEAD OF CPAP AT THIS TIME. DENIES SOB ONCE IN CHAIR. CALL LIGHT PLACED WITHIN REACH.
--- NOTE | 2017-06-19 02:30 | NUR ---
PT RANG CALL LIGHT REQUESTING TO STAND. C/O LOWER BACK PAIN. PRN TYLENOL OFFERED. PT ASSISTED BACK TO BED. 2L NC IN PLACE. DENIES SOB. HOB ELEVATED. OFFERED TO ELEVATE LE, REFUSES AT THIS TIME. CALL LIGHT WITHIN REACH.
--- NOTE | 2017-06-19 06:51 | NUR ---
OVERALL PT SLEPT WELL THROUGH THE NIGHT IN CHAIR. 2L NC USED INSTEAD OF CPAP, SPO2 WNL, NO NEW EPISODE OF SOB. PT AWOKE AND WAS ALERT AND ORIENTED X 4. REQUESTING TO FRESHEN UP. BM SMEARS NOTED ON GOWN, CLEANSED WITH WIPES. CARRASQUILLO CARE PROVIDED. NEW GOWN PLACED. FACE CLEANSED. PT ASSISTED TO SINK TO BRUSH TEETH, TOLERATED WELL. OVERALL PAIN IN LOWER BACK AND GROIN HAS DECREASED, PER PT. PRN TYLENOL GIVEN X 2. LASIX 5MG/HR CONTINOUS.
--- NOTE | 2017-06-19 07:36 | NUR ---
PT AWAKE AND DR. WAKEFIELD IN TO ASSESS PT, IN ROOM.
--- NOTE | 2017-06-19 09:00 | NUR ---
PT AWAKE IN BED. HELPED TO BR AND THEN TO CHAIR.
--- NOTE | 2017-06-19 09:29 | NUR ---
ASSESSMENT COMPLETED STATES HEADACHE DISCOMFORT IS "2/10". REFUSED TYLENOL STATES "IT'S NOT THAT BAD". ORTHOS COMPLETED PER DR. HILL, PT SHAUNA WELL. PT ATE APPROX 95% OF ADA DIET. PT STATES BEING TIRED AND DID NOT HAVE A GOOD NIGHT. PT OFF 02 PER R.T. D/T SATS 100%. AFTER PT BACK TO BED STATES "I'M HAVING A HARD TIME BREATHING". SATS 93%, HUMIDIFIED 02 ON AT 2L AND SATS 98%. PT UP TO BATHROOM TO HAVE BM.
--- NOTE | 2017-06-19 12:17 | NUR ---
PT EATING LUNCH. WILL CHECK BACK ON
--- NOTE | 2017-06-19 13:44 | NUR ---
PT STANDING WITH WALKER, TO EMBER CHAIR AND RESTING. C/O LOW BACK PAIN "2" DENIES NEED FOR PAIN MED AT THIS TIME. ASSESSMENT COMPLETED.
--- NOTE | 2017-06-19 17:16 | NUR ---
ASSESSMENT COMPLETED AND PT REMAINS UP IN EMBER CHAIR. AFTER DRINKING WATER PT STATES "MY STOMACH DOESN'T FEEL VERY GOOD". DENIES NAUSEA. PT NOW EATING DINNER BUT HAS A DECREASED APPETITE.
--- NOTE | 2017-06-19 18:10 | NUR ---
PT ATE 80% OF DINNER (SMALL PORTION). RESTING IN EMBER CHAIR, IN ROOM.
--- NOTE | 2017-06-19 18:46 | NUR ---
WARM BLANKETS GIVEN, PT REMAINS IN EMBER CHAIR. NO C/O AT THIS TIME. IN ROOM.
--- NOTE | 2017-06-19 19:54 | NUR ---
PT SHIFT REPORT RECIVED FROM DAY SHIFT RN. PT RESTING IN CHAIR WITH AT HIS SIDE. ALL QUESTIONS ANSWERED. WILL CONTINUE TO CLOSELY MONITOR.
--- NOTE | 2017-06-19 20:15 | NUR ---
PT SHIFT ASSESSMENT COMPLETED. PT SITTING IN CHAIR AT THIS TIME. BREATH SOUNDS CLEAR IN UPPER AND FINE CRACKLES NOTED IN LEFT LOWER REGION. PT IS ON 2L NC. PT DENIES SOB AT THIS TIME. BOWEL TONES ACTIVE. ABD DISTENDED PT STATES IT IS ALMOST HIS NORMAL. PEDAL PULSES DOPPLER. EDEMA NOTED IN BILATERAL FEET/ LOWER EXTREMITIES. PT IS ENGAGING IN CONVERSTATION. URINARY OUTPUT IS INCREASING MORE AT THIS TIME. URINE OUTOUT HAS BEEN LOWER THROUGHOUT THE DAY. WILL CONTINUE TO CLOSELY MONITOR.
--- NOTE | 2017-06-19 22:00 | NUR ---
PT CALLED TO GET INTO BED. ASSISTED PT TO BED WITH 1 PERSON STAND-BY AND WALKER. PT TOLERATED WELL. ONCE IN BED GAVE WARM BLANKET. ELEVATED LEGS ON PILLOW. PT REQUESTING TO HAVE TYLENOL AND AMBIEN. PT WANTS TO TRY CPAP TONIGHT. CARRASQUILLO EMPTIED.
--- NOTE | 2017-06-19 22:25 | NUR ---
PT MEDICATIONS GIVE. PLACED PT ON CPAP. PT IS SITTING UP ABOUT 35 DEGREES IN BED AND IS TOLERATING CPAP WELL AT THIS TIME. WILL CONTINUE TO CLOSELY MONITOR. ENCOURAGE TO CALL STAFF IF HE CAN NOT TOLERATE IT.
--- NOTE | 2017-06-19 23:01 | NUR ---
PATIENT RESTING QUIETLY, EYES CLOSED. CPAP ON. SP02 96%.
--- NOTE | 2017-06-20 | NUR ---
PT RESTING IN BED WITH CPAP IN PLACE. PT REMAINS WITH HOB UP TO 40 DEGREES FOR COMFORT. FEET ELEVATED ON PILLOWS. WILL CONTINUE TO CLSOELY MONITOR.
--- NOTE | 2017-06-20 02:00 | NUR ---
PT RESTING IN BED AT THIS TIME. CARRASQUILLO DRAINING YELLOW URINE. C[place]QU[place]O EMPTIED. BED ALARM ON FOR PT SAFETY. WILL CONTINUE TO CLOSELY MONITOR.
--- NOTE | 2017-06-20 03:00 | NUR ---
PT CALLED TO GET UP TO STAND AT BEDSIDE. ASSISTED PT WITH STANDING AND PT TOLERATED WELL. PT STOOD FOR APPROX 15 MINUTES WITH WALKER AND STAFF MEMBER IN THE ROOM. PT STATES "IT IS GOOD TO GET 5 STRAIGHT HOURS OF SLEEP". PT BACK TOT BED WITH CPAP IN PLACE. CALL LIGHT IN REACH. WILL CONTINUE TO CLOSELY MONITOR.
--- NOTE | 2017-06-20 04:30 | NUR ---
PT CALLED TO GET UP TO SIDE OF BED AND READ. SET PT TABLE UP PERREQUEST WITH BIBLE AND 1/2 CUP OF COFFEE AND CRACKERS. PT DENIES ANY OTHER NEEDS AT THIS TIME. PT IS ON ROOM AIR AT THIS TIME. PT SPO2 97%. PT DENIES SOB OR NEEDING OXYGEN AT THIS ITME. WILL CONTINUE TO CLOSELY MONITOR AT THIS TIME.
--- NOTE | 2017-06-20 05:59 | NUR ---
PT CALLED TO STAND AT THE BEDSIDE. PT STANDING WITH WALKER AND THIS RN IN ROOM WITH PT. PT IS VERY TALKATIVE THIS AM AND ENGAGING IN CONVERSATIONS AND TELLING STORIES ABOUT HIS PAST. BREAKFAST ORDERED. LAB TECT IN FOR MORNING LAB DRAWS. PT NOW SITTING AT EDGE OF BED. PT CALLS APPROPRIATELY.
--- NOTE | 2017-06-20 08:13 | NUR ---
DR. WAKEFIELD IN TO ASSESS PT AND TALK TO PT & ABOUT STARTING ON ORAL DIURETICS AND TURNING OFF LASIX GTT. PT MAY BE TRANSFERRED TO MED/SURG FLOOR. PT EATING ADA BREAKFAST, HE HAS A BETTER APPETITE THIS MORNING.
--- NOTE | 2017-06-20 09:57 | NUR ---
PT RETURNED TO BED AT 0930, SLEEPING WITH REU. SCD'S ON BILAT, LOWER EXTREMITIES ELEVATED ON PILLOWS.
--- NOTE | 2017-06-20 10:24 | NUR ---
PHARMACIST CLARKE IN TO TALK WITH ABOUT HOME MEDS. TORSEMIDE 40MG PO GIVEN AND LASIX GTT DC'D. IV FLUSHED WITH 10 MLS NORMAL SALINE AND DRESSING CHANGED ON IV SITE (LEFT FOREARM).
[2017-06-20] MEDS ORDERED: DEMADEX20 MG PO (10:48)
--- NOTE | 2017-06-20 12:07 | NUR ---
Medications reconciled with pharmacy records and interview with patient's , who organizes his medications
--- NOTE | 2017-06-20 12:34 | NUR ---
SPONGE BATH GIVEN AND PT SITTING ON EDGE OF BED EATING LUNCH. ASSESSMENT COMPLETED, DENIES C/O. REPORT GIVEN TO ANNETTE MARTINEZ. PT ATE 95% OF ADA, LOW SALT DIET.
--- NOTE | 2017-06-20 12:52 | NUR ---
PT TRANSFERRED TO ROOM 113 VIA EMBER CHAIR. WITH PT.
--- NOTE | 2017-06-20 13:17 | NUR ---
PT ARRIVED ON THE FLOOR 1252 IN HIS CHAIR WITH FAMILY AT BEDSIDE. SCD IN PLACE AND ON. SIGNIFICANT PITTING EDEMA IN BILAT FEET AND LOWER EXTRIMITIES. SPOKE WITH DR WAKEFIELD PRIOR TO TRANSFER TO FLOOR RE: IV INSERTED ON 06/16. VERBAL ORDER TO LEAVE IV IN PLACE LONG IT IS PATENT AND FUNCTIONAL WITH NO SIGNS OF INFECTION OR INFILTRATION.
--- NOTE | 2017-06-20 16:22 | NUR ---
REMOVED CARRASQUILLO PER ORDER. DRAINED 250ML YELLOW URINE WITH SEDIMENT. BALLOON DRAINED OF 10ML STERILE WATER. PT TOLERATED REMOVAL WELL. URINAL GIVEN TO PT. PT CONCERNED ABOUT TAKING CARRASQUILLO OUT TOO EARLY AND NEED FOR REPLACEMENT IF HE FAILS PO DIURETIC TRIAL. RN EXPLAINED RISK OF INFECTION AND DECREASED NEED FOR CLOSE MONITORING REASONS WHY CARRASQUILLO IS NOT INDICATED. PT VERBALIZED UNDERSTANDING AND PROCEEDED WITH REMOVAL. LABORER PIE BAKERY AND RN USED DOPPLER TO FIND PEDAL PULSES. PULSES WERE LIGHTLY PALPABLE. PULSES MARKED. DEEP PITTING EDEMA IN BILAT FEET AND ANKLES. SCD IN PLACE AND ON. FEET ELEVATED.
--- NOTE | 2017-06-20 19:54 | NUR ---
RECEIVED REPORT FROM DAY SHIFT RN. PATIENT IS STANDING IN FRONT OF HIS CHAIR. PATIENTS IS LAYING ON THE COUCH. NO NEEDS NOTED. CALL LIGHT IN REACH.
--- NOTE | 2017-06-20 21:30 | NUR ---
PATIENT ASSESMSENT COMPLETED. PATIENTS EVENING MEDICATIONS GIVEN PER ORDER. PATIENT ASSISTED INTO BED. PATIENTS EVENING MEDICATIONS GIVEN PER ORDER. PLACED X2 LIDODERM PATCHES, ONE ON HIS LOWER BCAK ON ONE ON HIS RIGHT SHOULDER. PATIENT RATES PAIN AT A 1/10. PAIN IN HIS BACK, AND SHOULDERS IS CHRONIC FOR PATIENT. PATIENTS REMAINS AT THE BEDISDE. PATIENTS CPAP PLACED ON WITH NO OXYGEN BLED IN PER RT. PATIENT PROVIDED WITH WARM BLANKETS. PATIENT WAS ABLE TO VOID. PATIENT DENIES ANY NEEDS AT THIS TIME. CALL LIGHT IN REACH. IS STAYING WITH PATIENT. LINEN PROVIDED.
--- NOTE | 2017-06-20 23:17 | NUR ---
PATIENT IS RESTING IN BED WITH EYES CLOSED AND CPAP IN PLACE. PATIENT SPOT CHECK ON OXYGEN AND IS AT 95%. PATIENTS IS ASLEEP IN THE COUCH. CALL LIGHT IN REACH.
--- NOTE | 2017-06-20 23:55 | NUR ---
REPORT GIVEN TO JORGE MARTINEZ. TO RESUME CARE
--- NOTE | 2017-06-21 02:00 | NUR ---
PATIENT SIDE OF BED USING URINAL. NO COMPLAINTS OF PAIN AT THIS TIME. WEARING CPAP. REQUESTED TO TAKE BREAK FROM SCDS. PATIENT HAS 4+ PITTING EDEMA TO LOWER EXTREMITIES, WITH SOME INCREASED REDNESS. PEDAL PULSES FAINT.
--- NOTE | 2017-06-21 05:17 | NUR ---
PATIENT UP TO RECLINER THIS MORNING, REPORTS HEAT HELPS LOWER CHRONIC BACK PAIN. ADMINISTERED PRN TYLENOL 0430. VS STABLE. PATIENT LOWER EXTREMITIES 4+ EDEMA WITH INCREASED REDNESS. ELEVATED IN RECLINER. PATIENT VOIDING WELL.
--- NOTE | 2017-06-21 07:28 | NUR ---
RECIEVED BEDSIDE REPORT FROM MICHELLE PATEL. PT IS UP IN CHAIR, AT BEDSIDE. PT REPORTS ONE EPISODE OF "FEELING ROTTEN" WITH NO CLEAR INDICATORS TO WHY. THE FEELING CLEARED IN APROX 1 HR WITH NO INTERVENTIONS. VOIDING WELL.
--- NOTE | 2017-06-21 09:49 | NUR ---
PT IN CHAIR. PT REPORTS NO MORE EPISODES OF FEELING "ROTTEN".
--- NOTE | 2017-06-21 10:29 | NUR ---
VITALS AND I AND O DONE
== END 2017-06-21 11:05 | disposition swing bed (61) | DRG 291 ==
LOC: ED 15:49 → CCU 19:41 → MS 06-20 12:52
PROVIDERS: ADMIT Internal Medicine
DX: I13.0 Hypertensive heart and chronic kidney disease with heart failure and stage 1 through stage 4 chronic kidney disease, or unspecified chronic kidney disease (principal); I50.23 Acute on chronic systolic (congestive) heart failure; N18.4 Chronic kidney disease, stage 4 (severe); E11.9 Type 2 diabetes mellitus without complications; Z86.73 Personal history of transient ischemic attack (TIA), and cerebral infarction without residual deficits; G89.29 Other chronic pain; M54.9 Dorsalgia, unspecified; M25.511 Pain in right shoulder; I34.0 Nonrheumatic mitral (valve) insufficiency; I25.10 Atherosclerotic heart disease of native coronary artery without angina pectoris; Z90.5 Acquired absence of kidney; Z85.528 Personal history of other malignant neoplasm of kidney; E79.0 Hyperuricemia without signs of inflammatory arthritis and tophaceous disease; Z79.4 Long term (current) use of insulin; E78.5 Hyperlipidemia, unspecified; Z66 Do not resuscitate; Z95.1 Presence of aortocoronary bypass graft; Z88.0 Allergy status to penicillin; Z88.1 Allergy status to other antibiotic agents; Z88.5 Allergy status to narcotic agent; Z88.8 Allergy status to other drugs, medicaments and biological substances
CPT/HCPCS: 36415; 51702; 71046; 80048; 80053; 80069; 83735; 83880; 84484; 85025; 85610; 85651; 85730; 86140; 93005; 93010; 93306; 94667; 94668; 97110; 97116; 97162; 97165; 97530; 97535; J1650; J2405

== ENCOUNTER 2017-06-21 11:05 | Inpatient (IN) | payer MEDICARE, OTHER ==
[~2017-06-21] VITALS: Ht 177.8 cm; Wt 100.6 kg
--- OUTSIDE RECORDS SUMMARY | ~2017-06-21 | XMS | Clinical Summary ---
Demographics + + + | Address | [address] | | | [place] [address] | + + + | Home Phone | | + + + | Preferred Language | Unknown | + + + | Marital Status | | + + + | Druze Affiliation | Unknown | + + + [...] [place] | ECON | [address] | | | | | [place] [address] | | + + + + + Care Team Providers + +------+ + | Care Snaker Tractor Driver Name | Role | Phone | + +------+ + | Seth Teran MD | PP | | + +------+ + Source Comments [facility] is fully live on both [facility] and [facility] Allergies + + + + + + [...]
[~2017-06-21 11:05] MED LIST changes: +ALLOPURINOL100 MG PO; +AMBIEN5 MG PO; +CELEXA10 MG PO; +DEMADEX20 MG PO; +ESZOPICLONE3 MG PO; +FLONASE ALLERG9.9 ML NAS; +FUROSEMIDE40 MG PO; +HYDROCHLOROTHIA25 MG PO; +LASIX40 MG PO; +LOSARTAN POTAS100 MG PO; +TORSEMIDE20 MG PO; +VITAMIN D-32000 UNI1 PO
--- NOTE | 2017-06-21 15:33 | NUR ---
PT TRANSFERED TO SWING BED. ASSESSMENT COMPLETE, URINAL EMPTIED. PT HAD QUESTIONS ABOUT SWING BED PROGRAM, ALL QUESTIONS ANSWERED. PT IN CHAIR WITH PERSONAL BELONGINGS IN REACH, AT BEDSIDE.
--- NOTE | 2017-06-21 18:17 | NUR ---
PT CHANGED TO SWING BED. HAD SEVERAL EPISODES OF FEELING "NOT RIGHT". STATED IT FELT LIKE A WAVE IN HIS HEAD, DENIED NAUSEA, DENIED VOMITING, DENIED VISUAL DISTURBANCES. SIMITHCONE DROPS GIVEN PER PT REQUEST. PT UP [facility] PHYSICAL THERAPY. PT TOLERATED WELL. EDEMA DECREASED PER PT. PT STAYED WITHIN FLUID RESTRICTION. VOIDING WELL, PO TOROSIMIDE. A & O X4.
--- NOTE | 2017-06-21 19:10 | NUR ---
IN ROOM FOR REPORT, PT IS AWAKE IN CHAIR AND IS IN ROOM. CALL LIGHT IS WITHIN REACH.
--- NOTE | 2017-06-21 22:25 | NUR ---
IN ROOM TO ADMINISTER MEDS AND AND ASSESS. PT IS GETTING READY FOR BED, CPAP IS ON AND PT HAS FRESH WATER AT BEDSIDE. PT DENIES FURTHER NEEDS. CALL LIGHT IS WITHIN REACH. PT REFUSED SCD'S HE STATES LAST NIGHT HE FORGOT THEY WERE ON AND ALMOST FELL WHEN TRYING TO USE BATHROOM.
--- NOTE | 2017-06-22 00:48 | NUR ---
PATIENT CALLED AND ALERTED STAFF THAT HE NEEDS A NEW GOWN. PATIENT GOT OUT OF BED ON HIS OWN AND WITHOUT WALKER TO GO INTO THE BATHROOM. PATIENT DID URINATE IN THE URINAL. PATIENT HOWEVER HAD AN ACCIDENT ON THE FLOOR. PATIENT CLEANED UP AND PROVIDED WITH NEW GOWN. FLOOR CLEANED AND DRIED. PATIENT EDUCATED ON THE IMPORTANCE OF HAVING STAFF IN THE ROOM TO PREVENT FALLS. PATIENT VERBALIZED UNDERSTANDING. PATIENT IS BACK IN BED RESTING. PATIENT HAS HOME CPAP ON. THEAP ON THE COUCH. CALL LIGHT IN REACH.
--- NOTE | 2017-06-22 03:28 | NUR ---
PT IS RESTING WITH EYES CLOSED, CPAP IN PLACE, RESPIRATIONS ARE EVEN AND NONLABORED. CALL LIGHT IS WITHIN REACH.
--- NOTE | 2017-06-22 05:15 | NUR ---
PT IS RESTING WITH EYES CLOSED, RESPIRATIONS EVEN AND NONLABORED. CALL LIGHT IS WITHIN REACH.
--- NOTE | 2017-06-22 06:04 | NUR ---
PT CALLED NEEDED A NEW GOWN. SAYS THE PEE COMES OUT QUICKLY BEFORE HE CAN GET THE URINAL IN PLACE, DRIBBLES ON FLOOR AND GOWN. ASSISTED PT, CURRENTLY PT BACK IN BED, WITH NO OTHER NEEDS AT THIS TIME.
--- NOTE | 2017-06-22 07:33 | NUR ---
RECIEVED BEDSIDE REPORT FROM MICHELLE MALLORY. PT AWAKE AND ALERT IN CHAIR WITH AT BEDSIDE. PT REMINDED TO ASK FOR HELP WHEN GETTING UP FROM BED. PT REPORTS URGENCY WITH URINATION REASON WHY HE DID NOT WAIT FOR ASSISTANCE.
--- NOTE | 2017-06-22 09:49 | NUR ---
PATIENT UP WORKING WITH PT. PATIENTS WAITING IN ROOM.
--- NOTE | 2017-06-22 10:04 | NUR ---
PT UP WALKING WITH PHYSICAL THERAPY.
--- NOTE | 2017-06-22 10:38 | NUR ---
PATIENT SITTING UP IN BEDSIDE RECLINER. IN ROOM. CALL LIGHT IN REACH. NO OTHER NEEDS AT THIS TIME.
--- NOTE | 2017-06-22 12:11 | NUR ---
PT REPORTED A FEELING OF "SWIMMING" SIMULAR TO YESTERDAYS EPISODE. HOWEVER, TODAY HE FEELS LIKE "HIS CHAIR IS SINKING" AND HIS REPORTS HIS COLOR CHANGED. GAVE 1 DOSE OF SIMITICONE. PT INITALLY REPORTED THAT HELPED. ADVISED DR VARELA WHO ADVISED TO GIVE ONE DOSE OF ZOFRAN PER ORDER. GAVE THAT DOSE PER ORDER. PT STILL C/O OF SLIGHT NAUSEA AND "BUZZING" IN HIS EARS. ADVISED DR VARELA OF NEW COMPLAINTS, DR VARELA WILL GO SEE PT.
--- NOTE | 2017-06-22 13:31 | NUR ---
PT IS HAVING A ROUGH DAY. DIZZY, NAUSEA AND VERY UNEASY FEELING. ANOINTED AND PRAYED FOR PT. HE REQUESTED I CONTACT A GOOD FRIEND OF HIS AND ASK HIM TO PRAY FOR HIM-THIS I DID. WE FINISHED, DR VARELA AND MICHELLE BRYANT CAME IN. WILL FOLLOW NEEDED
--- NOTE | 2017-06-22 14:35 | NUR ---
PT STATES HE IS FEELING MUCH BETTER. AFTER DOSE OF REGLAN, PT WAS ABLE TO WALK AROUND AND BELCH. AFTER MULTIPLE BELCHES, PT STATED HE FELT MUCH BETTER. PT APPEARED MUCH MORE COMFORTABLE THAN HE WAS DURING DR VARELA'S VISIT.
--- NOTE | 2017-06-22 14:46 | NUR ---
IN ROOM, PATIENT WALKING AROUND ROOM WITH WALKER "TO TRY TO RELIEVE SOME GAS." GRANDSON IN ROOM SLEEPING ON AND OFF - HE HELPS THEM AT HOME WHEN HE IS NOT WORKING NIGHTS AND SLEEPING DURING THE DAY. PATIENT HAS BEEN THROUGH [facility] [place] . HE HAS ALSO BEEN THROUGH DIABETES EDUCATION CLASSES AND HAS MET WITH MATILDA DYER RN, AT [facility] A COUPLE OF TIMES. HIS MAIN COMPLAINT THE PAST 2 MONTHS HAS BEEN DECREASED APPETITE. HE HAS NOTICED HE DOES NOT NEED MUCH INSULIN HE WAS TAKING AT HOME. DOES THE COOKING MOST OF THE TIME. HE HASN'T BEEN EATING MUCH OF ANYTHING LATELY. I ENCOURAGED HIM TO EAT SOMETHING AT MEAL TIME TO PREVENT LOW BLOOD SUGARS FROM HAPPENING. I GAVE HIM A LIST OF LOW-SODIUM SNACK IDEAS. WE TALKED ABOUT BALANCED MEALS. HE THOUGHT HE WAS ON A RENAL DIET BUT HE IS ON AN ADA, LOW-SODIUM DIET ONLY. THERE WASN'T ANYTHING NEW I EDUCATED HIM ON, OTHER THAN HYPOGLYCEMIA. HE IS EATING SMALL MEALS HERE. THEY HAVE COOKBOOKS FROM CARDIAC REHAB CLASSES THEY TOOK SEVERAL YEARS AGO, AND HIS HAS SOME FAVORITE RECIPES SHE USES ALL THE TIME. I MENTIONED WE CAN SEE HIM HERE AN OUTPATIENT IF NEEDED, BUT HE ALREADY HAS BEEN THROUGH DIABETES EDUCATION CLASSES. MAYBE I'LL MEET WITH HIM DOWN THE ROAD IF HE GOES THROUGH OUR CARDIAC REHAB PROGRAM. MY NAME AND # PROVIDED.
--- NOTE | 2017-06-22 14:50 | NUR ---
PATIENT SITTING UP IN BEDSIDE RECLINER VISITING WITH AND GRANDSON. THIS DAY HABILITATION SUPERVISOR SET PATIENT UP FOR A SHOWER WITH A SHOWER CHAIR. THIS DAY HABILITATION SUPERVISOR STATERRENCEBY ASSISTED PATIENT INTO SHOWER. CALL LIGHT IN REACH. PATIENT UNDERSTANDS HE NEEDS TO CALL FOR ASSISTANCE BEFORE GETTING UP.
--- NOTE | 2017-06-22 18:20 | NUR ---
PT PARTCIPATED IN PHYSICAL THERAPY. REPORTED FEELING NAUSEAOUS AND BLOATED PART OF AFTERNOON. SIMETHOCONE DROPS GIVEN, PARTICALLY EFFECTIVE. ZOFRAN AND REGLAN GIVEN FOR NAUSEA, EFFECTIVE. PT INDEPENDENT IN SHOWER, IN ROOM. CPAP WHILE IN BED. AT BEDSIDE.
--- NOTE | 2017-06-22 18:46 | NUR ---
PATIENT STATES THAT HE WALKED TO THE BATHROOM BY HIMSELF. PATIENT NOW SITTING UP IN CHAIR RESTING WATCHING TV. CALL LIGHT WITHIN REACH. NO OTHER NEEDS AT THIS TIME.
--- NOTE | 2017-06-22 19:25 | NUR ---
IN ROOM FOR REPORT, PT IS STANDING BY RECLINER WITH WALKER AND IS IN THE ROOM. PT DENIES NEEDS AT THIS TIME.
--- NOTE | 2017-06-22 19:57 | NUR ---
SPOKE WITH DR VARELA ABOUT WHETHER THE PT SHOULD CONTINUE THE FLUID RESTRICTION THAT HE HAD BEFORE MOVING TO SWING BED. TORC FOR 1800 MLS RESTRICTION.
--- NOTE | 2017-06-22 20:24 | NUR ---
PT IS AWAKE IN BED WATCHING TV, EVENING MEDICATIONS WERE ADMINISTERED. PT DENIES FURTHER NEEDS AT THIS TIME.
--- NOTE | 2017-06-22 22:20 | NUR ---
IN ROOM TO ADMINISTER MEDICATIONS AND COMPLETE ASSESSMENT, PT IS NOW IN BED WITH CPAP ON AND LIDOCAINE PATCHES IN PLACE. PT DENIES FURTHER NEEDS AT THIS TIME.
--- NOTE | 2017-06-22 23:59 | NUR ---
PT IS RESTING WITH EYES CLOSED, RESPIRATIONS ARE EVEN AND NONLABORED WITH CPAP IN PLACE. CALL LIGHT IS WITHIN REACH.
--- NOTE | 2017-06-23 02:43 | NUR ---
PT IS RESTING WITH EYES CLOSED, RESPIRATIONS EVEN AND NONLABORED, CPAPA ON. CALL LIGHT IS WITHIN REACH.
--- NOTE | 2017-06-23 04:20 | NUR ---
PT IS RESTING WITH EYES CLOSED, RESPIRATIONS EVEN AND NONLABORED. CALL LIGHT IS WITHIN REACH.
--- NOTE | 2017-06-23 04:40 | NUR ---
PT SLEPT WELL THROUGH THE NIGHT WITH CPAP ON AND IN THE ROOM. THE IV IN HIS LEFT AC FLUSHES FINE. PT DID NOT COMPLAIN OF NAUSEA, VERTIGO, OR BLOATING THROUGH THE NIGHT. HE IS ON A CARDIAC/ADA DIET WITH 1800MLS FLUID RESTRICTION. PT IS SBA WITH WALKER OR CANE.
--- NOTE | 2017-06-23 05:54 | NUR ---
LAB IS IN PT'S ROOM AT THIS TIME. EMPTIED URINAL, PT DENIES FURTHER NEEDS AT THIS TIME.
--- NOTE | 2017-06-23 07:32 | NUR ---
BEDSIDE REPORT RECEIVED FROM [place]. PATIENT UP TO BATHROOM. DENIES ANY COMPLAINTS AT THIS TIME.
--- NOTE | 2017-06-23 09:10 | NUR ---
RN IN ROOM WITH PATIENT NO OTHER NEEDS AT THIS TIME.
--- NOTE | 2017-06-23 10:12 | NUR ---
PATIENT RESTING IN BED AT THIS TIME. WAS UP AMBULATING WITH PHYSICAL THERAPIST. TOLERATED WELL.
--- NOTE | 2017-06-23 11:13 | NUR ---
PATIENT SITTING ON BEDSIDE, IN ROOM. PATIENT STATES HIS HEAD IS POUNDING AND JOINTS ARE ACHING, PATIENT STATES PAIN LEVEL IS 6 OUT OF 10. PATIENT STATES HE FEELS DIZZY, STATES PATIENT IS FRUSTRATED AND AGITATED. RN NOTIFIED. THIS BOATBUILDER WOOD OFFERED TO HELP PATIENT LAY DOWN, PATIENT SAID NO HE WAS AFRAID HED GET NAUSEOUS IF HE LAYED DOWN. THIS BOATBUILDER WOOD OFFERED TO HELP PATIENT INTO BEDSIDE RECLINER, PATIENT DECLINED. RN NOTIFIED. RN IN THE ROOM CHECKING VITALS AND ORTHOSTATIC BLOOD PRESSURE. CALL LIGHT IN REACH.
--- NOTE | 2017-06-23 11:20 | NUR ---
PLANT SPRAYER REPORTED THIS RN THAT PATIENT C/O HEADACHE AND DIZZINESS. IN TO ROOM TO ASSESS PATIENT. PATIENT REQUESTED TYLENOL FOR HEADACHE. MED ADMINISTERED. PATIENT STATED THAT HE IS "NOT FEELING WELL" AND DIZZINESS. PATIENT IS LITTLE UNSTEADY. TALKED TO DR VARELA ABOUT PATIENT'S SYMPTOMS. ORTHOSTATIC BP DONE AND REPORTED TO MD. ASSISTED PATIENT TO CHAIR. CBG CHECK AND WNL. PATIENT WAS OFFER LUNCH. AFTER EATING PATIENT REPORTED FEELING A LITTLE BETTER AT THIS TIME. WILL CONTINUE TO MONITOR.
[2017-06-23] MEDS ORDERED: METOPROLOL SUC100 MG PO (12:45)
[2017-06-23] MEDS ORDERED: LOSARTAN POTASS25 MG PO (12:45)
[2017-06-23] MEDS ORDERED: DEMADEX20 MG PO (12:46)
[2017-06-23] MEDS ORDERED: NOVOLOG FL100 UNIT/1 SUB-Q (12:49)
--- NOTE | 2017-06-23 13:00 | NUR ---
PATIENT RESTING IN BED, EAGER TO GO HOME. IN ROOM. THIS RN HEMODIALYSIS CHARGE CHECKED WITH PATIENT ABOUT SHOWERING BEFORE DISCHARGE, PATIENT DECLINED. PATIENT IN CLEAN PAIR OF CLOTHES FOR HOME, RN IN ROOM DISCUSSING DISCHARGE INSTRUCTIONS WITH PATIENT AND PATIENT'S . CALL LIGHT IN REACH. NO OTHER NEEDS AT THIS TIME.
--- NOTE | 2017-06-23 13:18 | NUR ---
PATIENT RESTING IN THE CHAIR. REPORTS THAT HE FEELS BETTER THIS TIME. AFTERNOON MED ADMINISTERED. NO APPARENT DISTRESS NOTED. EDUCATION DONE ABOUT FLUID RESTRICTION, HF ZONES MANAGEMENT, AND HOW TO RECORD DAILY WEIGHT, BP AND HR. PATIENT AND PATIENT'S VERBALIZED UNDERSTANDING.
--- NOTE | 2017-06-24 13:16 | NUR ---
Heart Failure Follow Up call #1- Patient was discharged from [facility] 06/23/17. Called patient's home number, no answer. Left voicemessage.
== END 2017-06-23 14:15 | disposition home or self-care (01) | DRG 292 ==
LOC: MS 11:05
PROVIDERS: ADMIT Internal Medicine
DX: I13.0 Hypertensive heart and chronic kidney disease with heart failure and stage 1 through stage 4 chronic kidney disease, or unspecified chronic kidney disease (principal); N18.4 Chronic kidney disease, stage 4 (severe); I50.22 Chronic systolic (congestive) heart failure; I34.0 Nonrheumatic mitral (valve) insufficiency; E78.5 Hyperlipidemia, unspecified; E11.22 Type 2 diabetes mellitus with diabetic chronic kidney disease; G47.33 Obstructive sleep apnea (adult) (pediatric); G47.00 Insomnia, unspecified; G89.29 Other chronic pain; M54.9 Dorsalgia, unspecified; Z86.73 Personal history of transient ischemic attack (TIA), and cerebral infarction without residual deficits; Z87.891 Personal history of nicotine dependence; Z85.53 Personal history of malignant neoplasm of renal pelvis; Z79.4 Long term (current) use of insulin
CPT/HCPCS: 36415; 80048; 83735; 84100; 94668; 94760; 97110; 97116; 97165; 97535; J1650; J2405; J2765